=== PATIENT | female | born 1970 | race Caucasian/White ===

== ENCOUNTER → 2017-07-10 | Day surgery (SDC) | payer OTHER ==
[~2017-07-10] VITALS: Ht 175.3 cm; Wt 84.5 kg
[~2017-07-10] MED LIST: *ONDANSETRON 4 MG VIAL PERIprocedural Use ONLY ONE; ACETAMINOPHEN 1000 MG/100 ML 100 ML IV ONE; BIOT10TA PO; CHLORHEXIDINE GLUCONATE 2 % 1 PACK (2 CLOTHS) TOPICAL PRN; DEXAMETHASONE SOD PHOS 4 MG/ML VIAL ONE; DO NOT ADM ANY ANTICOAGULANT DRUGS PRN; FAMOTIDINE 20 MG/2 ML VIAL ONE; FOLI1TAB6 PO; FOLIC ACID 1 MG TAB PO SCH; HYDROmorphone HCL PF 1 MG/ML VIAL IV PRN; INSULIN HUMAN REGULAR 1,000 UNITS/10 ML VIAL SQ PRN; LACTATED RINGER'S 1000 ML INJ 2,000 ML IV ONE; LACTATED RINGER'S 1000 ML IV PRN; LIDOCAINE 2%/EPINEPHrine PF 1:200,000 20ML SDV ONE; MAGN1TAB14 PO; MAGNESIUM OXIDE 400 MG TAB PO SCH; METOPROLOL TARTRATE 25 MG TAB PO PRN; MIDAZOLAM HCL 2 MG/2 ML VIAL ONE; POVIDONE IODINE 5% (ANTISEPSIS KIT) 4 APPLICATIONS EACH NARE PRN; PROMETHAZINE HCL 25 MG TAB PO PRN; PROMETHAZINE INJ 25 MG/ML VIAL ONE; PROPOFOL 200 MG/20 ML AMP IV ONE; SODIUM BICARBONATE 8.4% INJ 0 ML ONE; SODIUM CHLORID 0.9% 500 ML IV PRN; [UNRECOGNIZED DRUG - OTHER] PO; ceFAZolin 2 GM PREMIX 50 ML IV SCH; fentaNYL CITRATE 250 MCG/5 ML AMP ONE; oxyCODONE/ACETAMINOPHEN 7.5 MG/325 MG TAB PO PRN
[2017-07-10 14:25] VITALS: BP 121/79; PULSE 84; RESP 16; TEMP 96.8; O2SAT 99
--- NOTE | 2017-07-12 14:05 | MP ---
cc: ANIRUDH GRADY DATE OF SURGERY: 07/10/2017. PREOPERATIVE DIAGNOSIS: Bilateral hypermastia. POSTOPERATIVE DIAGNOSIS: Bilateral hypermastia. OPERATIVE PROCEDURE PERFORMED: Bilateral breast reduction. SURGEON: Anirudh Grady M.D. ANESTHESIA: General. INDICATIONS FOR THE PROCEDURE: A 46-year-old white female with bilaterally large breasts desiring elective breast reduction. She underwent detailed explanation of the procedure, pros, risks and complications and possibility of issues such as hematoma, seroma, infection, flap loss, breast tissue loss, microcalcification in the breast tissue in the long run, possible asymmetry, atrophic scars, hypertrophic scars, keloids, chronic pain, hypersensitivity and possible loss for a nipple-areolar sensation, etc. were explained. She is willing to go ahead with the surgery. DESCRIPTION OF THE PROCEDURE IN DETAIL: The patient was brought to the operating room and was in the supine position. Anesthesia was induced. Prep and drape was done. IV antibiotic had been given. The time-out was called and completed. Preoperative markings were reinforced. The inferior pedicle with the lateral and medial rings were de-epithelialized. Upper flaps were developed after using tumescent solution at the interface. The lateral and medial dermal veins were released. The lateral vein was from the breast tissue to the release point and then the breast reduction was carried out taking out the lateral upper quadrant then also superior pole of the breast. Only a small portion of the medial upper pole was taken. Hemostasis was excellent. The lateral dermal flap was secured to the anterior axillary line chest wall to define the lateral border of the breast. The flaps were brought together and sutured in place with Vicryl deep sutures and also some fine inverting sutures. It was not necessary to use any skin sutures. Nipples were exteriorized in symmetrical position and were also sutured with internal Vicryls only. The patient remained stable. Intraoperative blood loss was approximately 50 mL. Two Jeff-Marte drains were used and they were secured. They were brought out laterally at the end of the incision line. No complications. signed, not fully reviewed MD CHETAN Monzon/[email or web address] /11:42 AM /1:55 PM LORENZO
== END | disposition home or self-care (01) ==
LOC: HSDC 05:51
PROVIDERS: ATTEND Plastic Surgery
DX: N62 Hypertrophy of breast (principal); G47.00 Insomnia, unspecified; Z87.891 Personal history of nicotine dependence
CPT/HCPCS: 00402; 19318; 88305; J0131; J0690; J1100; J2250; J2405; J2550; J3010; J7120